=== PATIENT | female | born 1935 | race Caucasian/White ===

== ENCOUNTER 2016-05-17 08:09 | Emergency (ER) | payer OTHER ==
[~2016-05-17] VITALS: Ht 121.9 cm; Wt 54.4 kg
[2016-05-17 08:13] VITALS: BP 160/79
--- NOTE | 2016-05-17 08:19 | NUR ---
PT W/C ASSISTED TO BED 4 AT THIS TIME.
--- NOTE | 2016-05-17 08:20 | NUR ---
81/F BIB DAUGHTER W/ C/O DIARRHEA X 2 DAYS. PATIENT STATES " I FEEL TIRED & i HAD DIARRHEA 4 TIMES TODAY". DENIES N/V; SKIN IS PINK/WARM/DRY; AAOX4 WITH EVEN AND UNSTEADY GAIT; LUNGS CLEAR BL; HR EVEN AND REGULAR; PT DENIES ANY FEVER, CP, SOB, OR COUGH AT THIS TIME; PATIENT STATES PAIN OF 0/10 AT THIS TIME; VSS; PATIENT POSITIONED FOR COMFORT; HOB ELEVATED; BEDRAILS UP X2; BED DOWN. ER MD MADE AWARE OF PT STATUS.
--- NOTE | 2016-05-17 08:25 | NUR ---
DAUGHTER AT BEDSIDE.
--- NOTE | 2016-05-17 08:38 | NUR ---
[facility] in ED - 05/17/16 at 0848 by MED1 ANGELITA MAYFIELD EVALUATING PT AT BEDSIDE.
--- NOTE | 2016-05-17 08:38 | NUR ---
ER MD DR MAYFIELD EVALUATING PT AT BEDSIDE.
--- NOTE | 2016-05-17 08:44 | NUR ---
Patient appears to be resting comfortably in bed. Respirations even and unlabored. WILL CONTINUE TO MONITOR
[2016-05-17] MEDS ORDERED: NACL 0.9% 500 ML IV ONE ×2 (08:50)
--- NOTE | 2016-05-17 08:55 | NUR ---
LAB AT BEDSIDE.
--- NOTE | 2016-05-17 09:13 | NUR ---
[facility] in ED - 05/17/16 at 0916 by MED1 PT TAKEN TO CT VIA W/C ACCOMPANIED BY CUT OFF SAW OPERATOR PIPE BLANKS
--- NOTE | 2016-05-17 09:16 | NUR ---
PT TAKEN TO CT VIA RASHAD ACCOMPANIED BY MINE SUPERVISOR
--- NOTE | 2016-05-17 09:42 | NUR ---
Patient back from CT via [facility].
--- NOTE | 2016-05-17 10:35 | NUR ---
IV removed, catheter intact and site benign. Applied folded 4x4 gauze and tape to stop bleeding.
[2016-05-17 10:38] VITALS: BP 142/68
--- NOTE | 2016-05-17 10:38 | NUR ---
Patient discharged with BP 142/68; PT HX OF HTN; STATES TODAY HAS NOT TAKEN MEDICATION; PT DENIES HEADACHE OR DIZZINESS AT THIS TIME; ER MD DR. MAYFIELD AWARE. Written and verbal after care instructions given and explained. Patient alert, oriented and verbalized understanding of instructions. Wheel Chair Assisted with to car. All questions addressed prior to discharge. ID band removed. Patient advised to follow up with PMD. Rx of LOMOTIL given. Patient educated on indication of medication including possible reaction and side effects. Opportunity to ask questions provided and answered.
== END 2016-05-17 10:38 | disposition home or self-care (01) ==
LOC: MED 08:09
DX: R19.7 Diarrhea, unspecified (principal); I10 Essential (primary) hypertension; K21.9 Gastro-esophageal reflux disease without esophagitis
CPT/HCPCS: 36415; 74176; 80053; 81002; 85025; 85610; 85730; 96360; 99285; J7030